=== PATIENT | male | born 1970 | race Two or more races ===

== ENCOUNTER 2018-01-25 10:17 | Day surgery (SDC) | payer BC ==
[2018-01-22 11:58] LABS: Basophils # (auto) 0 uL; Basophils % (auto) 0.6 % (0.0-2.0); Eosinophils # (auto) 0.2 uL; Eosinophils % (auto) 3.6 % (0.0-7.0); Hematocrit 44.3 % (41.0-53.0); Hemoglobin 14.9 g/dL (13.5-17.5); Lymphocytes # (auto) 1.7 uL; Lymphocytes % (auto) 24.6 % (10.0-50.0); Mean Corpuscular Hemoglobin 29.7 pg (28.0-32.0); Mean Corpuscular Hgb Conc. 33.6 g/dL (32.0-36.0); Mean Corpuscular Volume 88.4 fL (80.0-100.0); Monocytes # (auto) 0.6 uL; Monocytes % (auto) 9.2 % (0.0-12.0); Neutrophils # (auto) 4.2 uL; Nucleated Red Blood Cells % 0.1 %; Platelet Count (auto) 314 10^3/uL (140-450); Red Blood Cells 5.01 10^6/uL (4.5-5.90); Red Cell Distribution Width 13.5 % (11.8-14.3); White Blood Cell 6.8 10^3/uL (4.4-10.8)
[2018-01-22 12:01] LABS: Urine Bacteria NONE SEEN /hpf (None Seen); Urine Blood Negative /uL (Negative); Urine Specific Gravity 1.021 (1.001-1.035); Urine WBC 1 /hpf (0 - 3)
[2018-01-22 12:11] LABS: INR 0.95 (0.9-1.15); Partial Thromboplastin Time 26.4 sec (22.64-33.71); Prothrombin Time 10.3 sec (9.37-12.3)
[2018-01-22 12:29] LABS: BUN/Creatinine Ratio 18.5; Calcium 9.2 mg/dL (8.5-10.1); Potassium 4.1 mmol/L (3.5-5.1)
[2018-01-22 12:31] LABS: Bilirubin, Total 0.4 mg/dL (0.2-1.0); Total Protein 8.7 g/dL (6.4-8.2)
[~2018-01-25] VITALS: Ht 172.7 cm; Wt 90.3 kg
[~2018-01-25 10:17] MED LIST: OMEP20TA PO
[2018-01-25] MEDS ORDERED: ceFAZolin 1GM/100ML 100 ML IV ONE (10:47)
[2018-01-25] MEDS ORDERED: LIDOCAINE HCL 2 %PF INJ 10ML AMP IJ ONE (12:27)
[2018-01-25] MEDS ORDERED: MIDAZOLAM HCL 1MG/1ML-2 ML VIAL ONE (12:27)
[2018-01-25] MEDS ORDERED: LIDOCAINE W/ EPINEPHRINE 1 % INJ 30ML ONE (12:42)
[2018-01-25] MEDS ORDERED: BUPIVACAINE 0.25% INJ 50ML VIAL ONE (12:43)
[2018-01-25] MEDS ORDERED: LIDOCAINE HCL 2% TOP JELLY 5ML TOP ONE (12:44)
[2018-01-25] MEDS ORDERED: PROPOFOL 10 MG/ML 20 ML IV ONE (12:44)
[2018-01-25] MEDS ORDERED: METOCLOPRAMIDE HCL 5MG/ml INJ 2ml VIAL ONE (12:45)
[2018-01-25] MEDS ORDERED: fentaNYL CITRATE 100 MCG/2 ML VL ONE (12:52)
[2018-01-25] MEDS ORDERED: NALOXONE HCL 0.4 MG/ML VIAL IV PRN (13:30)
[2018-01-25] MEDS ORDERED: ONDANSETRON HCL 4 MG/2 ML VIAL IV ONE (13:30)
[2018-01-25] MEDS ORDERED: MORPHINE SULFATE 4 MG/ML SYR/VIAL IV PRN (13:30)
[2018-01-25 14:04] VITALS: BP 123/80
== END 2018-01-25 14:15 | disposition home or self-care (01) ==
LOC: SUR 10:17
PROVIDERS: ATTEND Urology
DX: N45.1 Epididymitis (principal); N41.1 Chronic prostatitis; N50.811 Right testicular pain; R39.89 Other symptoms and signs involving the genitourinary system; G47.33 Obstructive sleep apnea (adult) (pediatric); F17.200 Nicotine dependence, unspecified, uncomplicated; J44.9 Chronic obstructive pulmonary disease, unspecified
CPT/HCPCS: 36415; 52000; 64425; 80053; 81001; 85025; 85610; 85730; 87086; C1769; J0690; J2001; J2250; J2704; J2765; J3010; J3490; J7030